=== PATIENT | male | born 1960 | race Caucasian/White ===

== ENCOUNTER → 2016-05-11 | Outpatient (CLI) | payer OTHER ==
--- NOTE | 2016-05-11 11:04 | RAD ---
EXAM DESCRIPTION: MYELOGRAM, LUMBAR SPINE CLINICAL HISTORY: 56 years Male, LOW BACK PAIN COMPARISON: None. TECHNIQUE: Fluoroscopy guided myelogram was performed in conjunction with a CT myelogram. FINDINGS: Total exam dose 114.78 mGy. The risks, benefits and alternatives of a fluoroscopic guided lumbar puncture were discussed with the patient including risks of pain, bleeding, infection, nondiagnostic result and post lumbar puncture headache including possible blood patch placement. The patient was given an opportunity to ask questions about the procedure, its risks, benefits and alternatives. He stated he understood these things and wished to proceed. The patient denied any known relevant drug allergies. The patient was placed in the supine position on the fluoroscopy table and a suitable access site posterior to the L4-5 level was identified and marked on the patient's skin surface. The skin was prepped and draped in the usual sterile manner. Approximately 3 cc of 1% lidocaine were used for local anesthesia. Using fluoroscopic guidance, a 22 gauge spinal needle was placed into the thecal sac and return of blood-tinged cerebrospinal fluid was obtained. Approximately 14 mL of iodinated contrast were injected into the thecal sac under real-time fluoroscopic visualization. The spinal needle was withdrawn and an occlusive bandage was applied. The patient tolerated the procedure well, and there were no immediate postprocedure complications. IMPRESSION: Uncomplicated fluoroscopic guided lumbar myelogram. Please see separate report from the CT portion of today's exam for more detailed discussion of findings. Electronically signed by: Khoa Owen MD 05/11/2016 11:04 AM CDT
--- NOTE | 2016-05-11 11:21 | CT ---
EXAM DESCRIPTION: Lumbar Spine CLINICAL HISTORY: 56 years Male, LOW BACK PAIN COMPARISON: None. TECHNIQUE: CT myelogram was performed after the intrathecal injection of approximately 13 mL iodinated contrast. The procedure portion of this exam is dictated separately. FINDINGS: There is no vertebral body fracture. Minimal grade 1 retrolisthesis is noted at L3-4. The spinous and transverse processes are intact. There is no disc space narrowing or facet joint hypertrophy in visualized portions of the lower thoracic spine. Mild degenerative changes involve the sacroiliac joints bilaterally, including anterior fusion in both sacroiliac joints. A spinal stimulator device is present but only partially visualized. The paraspinal and visualized retroperitoneal soft tissues are otherwise unremarkable. At T12-L1, the intervertebral disc and facet joints are well maintained, and there is no central canal or neuroforaminal stenosis. At L1-2, there is only minimal concentric disc bulging and bilateral facet joint degeneration without central canal or neuroforaminal stenosis. At L2-3, the intervertebral disc and facet joints are fairly well-maintained. At L3-4, there is concentric disc bulging with mild bilateral facet joint degeneration and ligament flavum thickening resulting in moderate central canal and at least mild bilateral neuroforaminal stenosis. At L4-5, there is concentric disc bulging with bilateral facet joint degeneration and ligamentum flavum thickening resulting in moderate central canal and moderate bilateral neuroforaminal stenosis. At L5-S1, there is only minimal, if any, posterior disc bulging. Bilateral facet joint degeneration and ligament flavum thickening are noted, and findings result in mild to moderate central canal stenosis. IMPRESSION: Disc bulging, facet joint degeneration and ligament flavum thickening at several levels in the lower lumbar spine resulting in central canal and neuroforaminal stenosis as detailed above, worse at L3-4 and L4-5. Electronically signed by: Khoa Owen MD 05/11/2016 11:20 AM CDT
== END | disposition home or self-care (01) ==
LOC: RAD 08:53
PROVIDERS: ATTEND Nurse Practitioner Family
DX: M54.5 Low back pain (principal)

== ENCOUNTER 2020-01-12 13:15 | Emergency (ER) | payer SELFPAY ==
[2020-01-12] MEDS ORDERED: HALOPERIDOL LACTATE INJ 5 MG/ML VIAL IM ONE (14:14)
[2020-01-12] MEDS ORDERED: diphenhydrAMINE HCL 50 MG/ML VIAL IM ONE (14:15)
[2020-01-12] MEDS ORDERED: SODIUM CHLORIDE 0.9% 1000ML 1,000 ML IVS ONE ×2 (15:52→15:53)
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
--- NOTE | 2020-01-12 16:28 | CT ---
EXAM: CT Head Without Intravenous Contrast CLINICAL HISTORY: The patient is 59 years old and is Male; CONFUSION TECHNIQUE: Axial computed tomography images of the head/brain without intravenous contrast. Sagittal and coronal reformatted images were created and reviewed. This CT exam was performed using one or more of the following dose reduction techniques: automated exposure control, adjustment of the mA and/or kV according to patient size, and/or use of iterative reconstruction technique. COMPARISON: No relevant prior studies available. FINDINGS: Brain: Unremarkable. No hemorrhage. No significant white matter disease. No edema. Ventricles: Unremarkable. No ventriculomegaly. Bones/joints: Unremarkable. No acute skull fracture. Soft tissues: Unremarkable. Sinuses: Unremarkable as visualized. No acute sinusitis. Mastoid air cells: No significant mastoid fluid. Tubes, lines and devices: Stimulator leads in the upper cervical spine. IMPRESSION: No acute intracranial findings. No hemorrhage. Electronically signed by: Angelica Meza MD 01/12/2020 4:26 PM [facility]
--- NOTE | 2020-01-12 16:30 | RAD ---
EXAM: XR Chest, 2 Views CLINICAL HISTORY: The patient is 59 years old and is Male; CONFUSION TECHNIQUE: Two views of the chest. COMPARISON: No relevant prior studies available. FINDINGS: Lungs: Unremarkable. No consolidation. Pleural space: Unremarkable. No pneumothorax. Heart: Unremarkable. No cardiomegaly. Mediastinum: Unremarkable. Bones/joints: Cervicothoracic spinal hardware. No acute fracture visualized. Tubes, lines and devices: Spinal stimulator leads, incompletely evaluated. Upper abdomen: No free air in the visualized upper abdomen. IMPRESSION: No acute cardiopulmonary process identified. Electronically signed by: Angelica Meza MD 01/12/2020 4:28 PM [facility]
[2020-01-12] MEDS ORDERED: HYDROcodone 10MG/APAP 325MG 1 EA TAB PO ONE (18:30)
[2020-01-12 20:01] VITALS: BP 138/69; TEMP 97.3; O2SAT 94
== END 2020-01-12 19:50 | disposition home or self-care (01) ==
LOC: ER 13:15
DX: R41.0 Disorientation, unspecified (principal); D45 Polycythemia vera; E86.0 Dehydration; R45.1 Restlessness and agitation; R45.6 Violent behavior; F22 Delusional disorders; I10 Essential (primary) hypertension; E07.9 Disorder of thyroid, unspecified; Z72.820 Sleep deprivation; Z79.899 Other long term (current) drug therapy
CPT/HCPCS: 36415; 36416; 70450; 71046; 80048; 80076; 80307; 80320; 81001; 82550; 82553; 82948; 84484; 85025; 85610; 85730; 93005; J1200; J1630; J2060; J7030